=== PATIENT | male | born 1995 | race African-American/Black ===

== ENCOUNTER 2019-02-04 21:47 | Emergency (ER) | payer MEDICAID ==
[~2019-02-04] VITALS: Ht 180.3 cm; Wt 73.4 kg
[2019-02-04 21:55] VITALS: BP 125/76
[2019-02-04] MEDS ORDERED: AZITHROMYCIN 250 MG TABLET ONE (22:24)
[2019-02-04] MEDS ORDERED: CEFTRIAXONE 250 MG ONE (22:24)
[2019-02-04] MEDS ORDERED: LIDOCAINE-MPF 1%, 2ML ONE (22:25)
[2019-02-04] MEDS ORDERED: AZITHROMYCIN 500 MG TABLET PO ONE (22:30)
[2019-02-04] MEDS ORDERED: CEFTRIAXONE 250 MG IM ONE (22:30)
== END 2019-02-04 22:37 | disposition home or self-care (01) ==
LOC: ED 22:30
DX: A56.01 Chlamydial cystitis and urethritis (principal); A54.01 Gonococcal cystitis and urethritis, unspecified; F17.200 Nicotine dependence, unspecified, uncomplicated
CPT/HCPCS: 87491; 87591; 96372; 99283; J0696

== ENCOUNTER 2019-03-15 12:18 | Emergency (ER) | payer MEDICAID ==
[~2019-03-15] VITALS: Ht 180.3 cm; Wt 72.0 kg
[2019-03-15 12:36] VITALS: BP 114/63
--- NOTE | 2019-03-15 14:25 | NUR ---
NOT IN LOBBY
--- NOTE | 2019-03-15 14:46 | NUR ---
NOT IN LOBBY
--- NOTE | 2019-03-15 15:03 | NUR ---
[id number]
--- NOTE | 2019-03-15 15:05 | NUR ---
DEPARTED FROM SYSTEM FOR NO ANSWER X3
== END 2019-03-15 15:05 | disposition left against medical advice (07) ==
LOC: ED 14:30
DX: M54.5 Low back pain (principal)
CPT/HCPCS: 72110; 99283